=== PATIENT | female | born 1950 | race Caucasian/White ===

== ENCOUNTER → 2023-10-06 | Outpatient (REF) | payer OTHER, SELFPAY | LOC: DHSLP | PROVIDERS: ATTENDING PHYSICIAN Internal Medicine; FAMILY PHYSICIAN Emergency Medicine | DX: G47.30 Sleep apnea, unspecified (principal); R06.83 Snoring | CPT/HCPCS: 95800 ==

== ENCOUNTER → 2023-10-18 15:45 | Outpatient (REF) | payer OTHER, SELFPAY | LOC: DHCBS HW 15:45 | PROVIDERS: ATTENDING PHYSICIAN Internal Medicine Cardiovascular Disease; FAMILY PHYSICIAN Emergency Medicine | DX: R06.02 Shortness of breath (principal) | CPT/HCPCS: 93306 ==

== ENCOUNTER 2023-11-26 11:17 | Inpatient (IN) | payer OTHER, SELFPAY ==
[2023-11-25 17:26] VITALS: BP 139/78
[2023-11-25 17:49] LABS: % Basophils 0.2 % (0-2); % Immature Granulocytes 0.7 % (0-0.5); % Lymphocytes 4.4 % (20.5-51.1); % Monocytes 4.9 % (1.7-9.3); % Neutrophils 89.8 % (42.2-75.2); Absolute Immature Granulocytes 0.1 10^3/uL (0-0.05); Absolute Lymphocytes 0.5 10^3/uL (1.2-3.4); Absolute Monocytes 0.6 10^3/uL (0.1-0.6); Absolute Neutrophils 10.9 10^3/uL (1.4-6.5); Hematocrit 36.2 % (37.0-47.0); Hemoglobin 12.1 g/dL (12.0-16.0); Mean Corp Hgb Conc. 33.4 g/dL (33.0-37.0); Mean Corpuscular Hgb 27.6 pg (27.0-31.0); Mean Corpuscular Volume 82.5 fL (81.0-99.0); Nucleated Red Blood Cells % 0 %; Platelet Count 163 10^3/uL (130-400); Red Blood Cell Count 4.39 10^6/uL (4.20-5.40); Red Cell Dist. Width 13.2 % (11.5-14.5); White Blood Cell Count 12.1 10^3/uL (4.8-10.8)
[2023-11-25 18:00] VITALS: BP 146/78
[2023-11-25 18:01] LABS: ALT (SGPT) 17 U/L (0-35); AST (SGOT) 25 U/L (14-36); Albumin 4.2 g/dl (3.5-5.0); Alkaline Phosphatase 72 U/L (38-126); Blood Urea Nitrogen 17 mg/dl (7-17); Calcium 9.9 mg/dl (8.4-10.2); Carbon Dioxide 21 mmol/L (22-30); Chloride 99 mmol/L (98-107); Glucose 127 mg/dl (70-99); Sodium 129 mmol/L (135-145); Total Bilirubin 1.6 mg/dl (0.2-1.3); Total Protein 7.1 g/dl (6.3-8.2); eGFR > 60.00
--- NOTE | 2023-11-25 18:14 | ED.GENMED ---
History of Present Illness
General
Chief Complaint: Skin Problem
Source: patient
Exam Limitations: none
Time Seen by Provider: 11/25/23 17:54
Travel History
Have you had any contact with someone who has COVID-19?: No
Do you have any symptoms of coronavirus? Fever > 100 degrees, chills, cough, shortness of breath, sore throat, loss of taste or smell, muscle aches, or headache?: No
History of Present Illness
History of Present Illness:
This is a 73 year old female that comes in with c/o rash on the right leg and feels like she has the flu. States that she started last night with vomiting and feeling like she had the flu. States that she had a temp was 100.2 and se normally runs on
the low side. States that she also has a rash on her leg which she states that she just noticed this morning. States that she also had chills last night, ,nausea and the vomiting. Denies any chest pain, SOB, abd pain, diarrhea, headache, dizziness,
urinary burning.
Past History
Past History
ED Past Medical History: Cancer, Hypercholesterolemia and Other (Non-Hodgkin's Lymphoma, MVP, Hiatal hernia)
ED Past Surgical History: Gynecological (Oophoerectomy) and Other (Lymph node biopsy, Right eye surgery, )
Social History
Tobacco: Non-smoker
Alcohol: Occasional
Drug: None
Personal:
Living: with family
Employment: Retired
Family History
Family History: Other (Noncontributory)
Review of Systems
Review of Systems
All Other Systems: ROS reviewed and negative except as documented in HPI and ROS
Constitutional: Reports fever and chills
EENT: Reports no symptoms
Respiratory: Reports no symptoms; Denies cough or trouble breathing
Cardiac: Reports no symptoms; Denies chest pain
ABD/GI: Reports nausea and vomiting; Denies abdominal pain or diarrhea
: Reports no symptoms
Musculoskeletal: Reports no symptoms
Skin: Reports rash (Or the right leg)
Neurological: Reports no symptoms; Denies dizzy or headache
Psychiatric: Reports no symptoms
Phy Exam
General Physical Exam
General Presentation: no apparent distress
General age: appears stated age
General Skin: warm and dry
General Habitus: elderly
General Mental: alert
ENT Exam
ENT Exam: TM's normal, pharynx normal and neck supple
Eye Exam
Eye Exam: EOMI
Cardiovascular Exam
Cardiovascular Exam: regular rate/rhythm and normal peripheral pulses
Pulmonary Exam
Pulmonary Exam: lungs clear, no respiratory distress, no rales, chest non tender, no crackles, no rhonchi, no wheezing and no cough
Gastrointestinal Exam
Gastrointestinal Exam: non tender, soft, no organomegaly, no pulsatile mass, non distended and other (Hypoactive bowel sounds)
Musculoskeletal Exam
Musculoskeletal Exam: full ROM and edema (Of the right foot and lower leg. )
Skin Exam
Skin Exam: normal color, warm/dry, no petechia and erythema (of the right foot lower leg medial aspect of the upper thigh)
Psychiatric Exam
Psychiatric Exam: normal mood/affect
Course
Orders/Labs/Results
Orders:
Orders
11/25/23 17:38
Complete Blood Count/With Diff Urgent
Comprehensive Metabolic Panel Urgent
Blood Culture Q30M
ESTRADA Source: Blood/Venous
Specimen Description:
Comment: FROM 2 SEPARATE SITES
Blood Culture Q30M
ESTRADA Source: Blood/Venous
Specimen Description:
Comment: FROM 2 SEPARATE SITES
11/25/23 18:13
US Periph Venous LOWER Ext RT Urgent
Comment:
Reason For Exam: Swelling, redness
11/25/23 18:14
0.9% Sodium Chloride 500 ml [Nss] 500 ml IV BOLUS
Ondansetron Injectable [Zofran] 4 mg IV NOW STA
11/25/23 18:18
Vancomycin 1 Gram/200 ml [Vancocin] 1 gram in 200 ml IV NOW
11/25/23 18:19
Pantoprazole [Protonix IV] 40 mg IV NOW STA
11/25/23 18:28
COVID-19 Antigen Urgent
Source: Nasal Swab
Lactic Acid Q4H
Comment: CANCEL 2nd LACTIC ACID IF 1st LACTIC ACID IS LESS THAN 2
Influenza A+B Rapid Molecular Urgent
ESTRADA Source: Nasal Swab
Specimen Description:
11/25/23 22:15
Lactic Acid Q4H
Comment: CANCEL 2nd LACTIC ACID IF 1st LACTIC ACID IS LESS THAN 2
Abnormal Lab Results
11/25/23
17:38
WBC 12.1 H 10^3/uL
(4.8-10.8)
Hct 36.2 L %
(37.0-47.0)
Abs Immat Gran (auto) 0.1 H 10^3/uL
(0-0.05)
Absolute Neuts (auto) 10.9 H 10^3/uL
(1.4-6.5)
Absolute Lymphs (auto) 0.5 L 10^3/uL
(1.2-3.4)
Immature Gran % 0.7 H %
(0-0.5)
Neutrophils % 89.8 H %
(42.2-75.2)
Lymphocytes % 4.4 L %
(20.5-51.1)
Sodium 129 L mmol/L
(135-145)
Carbon Dioxide 21 L mmol/L
(22-30)
Glucose 127 H mg/dl
(70-99)
Total Bilirubin 1.6 H mg/dl
(0.2-1.3)
11/25/23 17:38
11/25/23 17:38
Leukocytosis, Hyponatremia, Hyperglycemia, Total yessy slightly elevated. COVID and Influenza noted. Lactic acid normal at 1.2
Vital Signs
Initial and Last Documented VS:
Initial Vital Signs
Temp Pulse Resp BP Pulse Ox
98.2 F 84 16 139/78 100
11/25/23 17:26 11/25/23 17:26 11/25/23 17:26 11/25/23 17:26 11/25/23 17:26
Last Documented Vital Signs
Temp Pulse Resp BP Pulse Ox
98.2 F 84 16 139/78 99
11/25/23 17:26 11/25/23 17:26 11/25/23 17:26 11/25/23 17:11/25/23 17:55
MDM/Problems Addressed
Differential Diagnosis Includes:
Cellulitis, DVT,
MDM/Problems Addressed:
This is a 73 year old female that comes in with c/o feeling like she has the flu and she has redness of the right leg. States that she started yesterday feeling like she had the flu with a fever and vomiting. States that her whole body just hurts.
States that she also noticed that she has a rash of the right leg today.
Will get labs and US the right leg due to swelling. Explained to patient that she will be admitted as this looks to be a Cellulitis. Will start antibiotics.
Back into see patient. Explained that the US is negative for DVT. Will admit patient. Hospitalist notified.
Chronic conditions affecting care:
NA
Acute Exacerbation and/or Progression of Chronic Illness:
NA
*Radiology
Radiology exam reviewed: radiology read reviewed (US-No evidence of DVT of the right lower extremity)
*Pulse Oximetry
Patient hypoxic: no
*EKG
Interpreted by ED Provider?: NA
Rate: EKG- N/A
*Chair Caner Interpretation
Rate: normal
Heart Rate: 87
Rhythm: sinus
*Critical Care Note
Total Time (30-74mins, 75-104mins- exclusive of procedures): Not Applicable
ED Attending Note
-
Portions of this chart may have been created with voice recognition software.� Occasional wrong word or��sound alike� substitutions may have occurred due to the inherent limitations of voice recognition software.
Discharge Plan
Departure
Patient Disposition: Admit
Date of Disposition: 11/25/23
Time of Disposition: 20:04
Admit to: Med/Surg
Presentation/result/management discussed w/ accepting MD/DO: Hospitalist
Patient with high blood pressure during this ER visit?: Yes
Condition: Good
Covid-19: Negative COVID-19
Discharge Problem:
Cellulitis of leg, right
Prescriptions:
No Action
multivitamin 1 EACH tablet
1 ea PO DAILY
ascorbic acid (vitamin C) [Vitamin C] 500 MG tablet
1,000 mg PO DAILY
cholecalciferol (vitamin D3) [Vitamin D3] 400 UNITS tablet
400 units PO DAILY
pantoprazole 40 MG tablet,delayed release (DR/EC)
40 mg PO NOON
dextran 70-hypromellose [Artificial Tears (PF)] 1 EACH dropperette
1 drp BOTH EYES DAILY
melatonin 5 MG tablet
5 mg PO HS PRN (Reason: for sleep)
turmeric root extract 500 MG capsule
500 mg PO QPM
Referrals:
UNKNOWN - PT DOES,NOT KNOW [Family Provider] -
Interventions
Interventions:
*Risk Screen - Suicide Last Done: 11/25/23 17:55
*General Assessment Last Done: 11/25/23 17:55
*Neglect/Abuse Screening Last Done: 11/25/23 17:55
ED- Fall Risk Assessment Last Done: 11/25/23 17:55
ED-Skin Assessment Last Done: 11/25/23 17:55
Discharge Date and Time
Print Language: BELARUSIAN
[2023-11-25] MEDS: PROTONIX IV 40 MG IV (18:29)
[2023-11-25] MEDS: ZOFRAN 4 MG IV ×2 (18:29→20:04)
[2023-11-25] MEDS: NSS 500 IV (18:30)
[2023-11-25] MEDS: VANCOCIN 200 IV (18:30)
[2023-11-25 18:59] LABS: Lactic Acid 1.2 mmol/L (0.7-2.0)
[2023-11-25 19:00] VITALS: BP 148/70
[2023-11-25 19:19] LABS: COVID-19 Antigen Negative (Negative)
[2023-11-25 20:00] VITALS: BP 138/75
--- NOTE | 2023-11-25 20:27 | HPS.HSE ---
Family Physician
-
Family Physician: Jeremy Avila DO
Chief Complaint
-
Right leg erythema and swelling
History of Present Illness
This is a 73-year-old female with past medical history of 'lower herpes and known chronic right lower extremity lymphedema presented to the emergency department today with approximately 1 day history of right leg swelling and erythema.
Patient reported working in her yard about 2 days ago. She started feeling unwell electrolyte symptoms 1 day afterwards. This morning she looked at her feet and noticed increased swelling and erythema that was rapidly increasing throughout today
so she came to the emergency department. She did not have any fever of 102 degrees at home. She reports that severe nausea but no significant emesis at this time.
Denies any itching. Denies feeling lightheaded or dizzy. Denies any known sick contacts. She has not been hospitalized recently. She denies any recent antibiotic use. She is not on any immune suppressants. She has no history of diabetes.
The ED patient was afebrile hemodynamically stable and in mild distress due to nausea. She had leukocytosis to 12,000 but rest of CBC was unremarkable. She had chemistries notable for a sodium of 129 but otherwise unremarkable. COVID test is
negative. Ultrasound of the right lower extremity is negative for a DVT.
Medical History
Past Medical History
Past Medical History: Reports None
Past Surgical History: Reports None
Social History
Tobacco: Non-smoker
Alcohol: None
Drug: None
Personal:
Living: With Family
Employment: Retired
Family History
Family History: Not pertinent
Allergies / Home Medications
Allergies reflects when Allergies were last updated in [facility].
Home Medications with original date entered in [facility]
Allergy/Medication List:
Allergies
Allergy/AdvReac Type Severity Reaction Status Date / Time
adhesive Allergy electrodes Verified 04/04/20 09:11
- rash
No Known Drug Allergies Allergy - Verified 04/04/20 09:11
Home Medications
valacyclovir 500 mg tablet 500 mg PO DAILY 11/25/23
Review of Systems
-
History Source: Patient
Constitutional: Reports Fever, Fatigue and Chills
EENT: Reports No Symptoms
Respiratory: Reports No Symptoms
Cardiac: Reports No Symptoms
Abdomen/GI: Reports No Symptoms
: Reports No Symptoms
Musculoskeletal: Reports No Symptoms
Skin: Reports Rash
Neurological: Reports No Symptoms
Endocrine: Reports No Symptoms
Hematologic/Lymphatic: Reports No Symptoms
Psych: Reports No Symptoms
Physical Exam
Vital Signs
Vital Signs
Temp Pulse Resp BP Pulse Ox
98.2 F 84 16 139/78 99
11/25/23 17:26 11/25/23 17:26 11/25/23 17:26 11/25/23 17:26 11/25/23 17:55
Physical Exam
General: Well Developed and No Apparent Distress
HEENT: NormoCephalic, Anicteric, Moist mucous membranes, Atraumatic and PERRLA
Respiratory: Clear
Cardiac: S1/S2 and Regular Rhythm
Breast: Deferred by me
GI: Soft, Non Tender, Non Distended and Normal Bowel Sounds
Rectal: Deferred by Provider
Genito-urinary: Deferred by me
Musculoskeletal: No Clubbing, No Cyanosis and Edema, Right Lower Extremity
Skin: Warm, Dry and Rash (Right leg erythema extending from the ankle to above the knees. No lymphangitic extensions. )
Neuro: AO x 3
Hematologic/Lymphatic: No Lymphadenopathy
Psych: Calm
Laboratory Results
-
11/25/23 17:38
11/25/23 17:38
Laboratory Results
Lactic Acid Cancelled 11/25/23 22:15
Total Bilirubin 1.6 mg/dl (0.2-1.3) H 11/25/23 17:38
AST 25 U/L (14-36) 11/25/23 17:38
ALT 17 U/L (0-35) 11/25/23 17:38
Alkaline Phosphatase 72 U/L (38-126) 11/25/23 17:38
Data Reviewed
-
Ultrasound: Report Reviewed by me
Lab Data: Labs Reviewed by me
Old Records: Reviewed
Impression/Plan
-
IMPRESSION:
PLAN:
1. Cellulitis - R lower extremity erythema, edema and warmth c/w cellulitis. Mild pruritus. Possibly secondary to insect bite but no open wounds or ulcers noted. Fever to 102 suggestive of systemic inflammatory response. She is also quite
nauseous and unable to tolerate PO. Negative COVID. No respiratory symptoms. No recent hospitalizations, abx use or immunosuppressant use. No diabetes. Fairly low risk but cannot rule out community acquired mrsa.
- admit to observation
- follow up blood cultures
- will continue IV vancomycin for now.
- check MRSA swab
- transition to oral bactrim or doxycycline when tolerating PO
- pain control, keep legs elevated
2. Hyponatremia - Na 129, down from 138 a year ago. No significant hypovolemia on exam but cannot rule out a mild case. Takes valacyclovir only.
- check tsh, urine osmolality and urine Na
- IV fluids overnight and repeat Na in am.
3. Hyperbilirubin - Mildly elevated total bili with normal LFTs. No abdominal complaints.
- will repeat bili in am, if elevated, can obtain RUQ u/s and f/u as outpatient
DVT PPX with lovenox sq
Full Code
[2023-11-25 21:00] VITALS: BP 152/77
[2023-11-25 22:35] VITALS: BP 155/81
[2023-11-25 22:36] VITALS: BMI 35.8
[2023-11-25] MEDS: NSS 1000 IV (22:37)
[2023-11-25] MEDS: COMPAZINE 5 MG IV (23:17)
[2023-11-26] MEDS: VANCOCIN 200 IV (00:29)
--- NOTE | 2023-11-26 04:33 | PTCARENOTE ---
Received patient from ER, AAOx4. Patient able to ambulate from stretcher to bed, gait unsteady d/t right leg edema. Right leg warm, edematous, red from foot to mid thigh. Patient with n/v, zofran not effective; compazine ordered and given with
good results. Call love in reach, oriented to unit. Plan of care continues.
[2023-11-26 05:22] LABS: Osmolality Urine 196 mOsm/kg (300-900)
[2023-11-26 05:28] LABS: Urine Sodium 8 mmol/L (30-90)
[2023-11-26 07:00] VITALS: BP 149/77
[2023-11-26] MEDS: VALTREX 500 MG PO (08:10)
[2023-11-26] MEDS: PROTONIX 40 MG PO (08:10)
[2023-11-26] MEDS: NSS 1000 IV ×2 (08:12→11:28)
[2023-11-26 08:28] LABS: Hemoglobin 10.4 g/dL (12.0-16.0); Mean Corp Hgb Conc. 33.5 g/dL (33.0-37.0); Mean Corpuscular Hgb 27.3 pg (27.0-31.0); Mean Corpuscular Volume 81.4 fL (81.0-99.0); Mean Platelet Volume 9.3 fL (7.4-10.4); Platelet Count 154 10^3/uL (130-400); Red Blood Cell Count 3.81 10^6/uL (4.20-5.40); Red Cell Dist. Width 13.2 % (11.5-14.5)
[2023-11-26 09:18] LABS: Blood Urea Nitrogen 14 mg/dl (7-17); Carbon Dioxide 24 mmol/L (22-30); Chloride 104 mmol/L (98-107); Estimated Creatinine Clearance 74 ml/min; Glucose 98 mg/dl (70-99); Potassium 4.1 mmol/L (3.5-5.1); Sodium 132 mmol/L (135-145); Total Bilirubin 0.7 mg/dl (0.2-1.3); eGFR > 60.00
[2023-11-26 09:39] LABS: TSH 1.05 uIU/ml (0.47-4.68)
--- NOTE | 2023-11-26 10:53 | W.PN.HOSP.TC ---
Today's Communication/Plan
-
see outlined plan
Assessment / Plan
Assessment / Plan
Assessment:
RLE Cellulitis, unclear etiology
Underlying RLE lymphedema
- MRSA screen negative
- DVT study negative
- switch Vanco to IV Ancef
- follow cultures
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
- pain control
Nausea
- no BM in 3 days, no significant oral intake in past few days
- check obstruction series
- prn Compazine
Hyponatremia
- improving with IVF, low rate
Hyperbilirubinemia
- resolved
HX of Non Hodgkin lymphoma
DVT ppx: Lovenox
Code: Full
Anticipated Discharge: > 48 hours
Subjective/Interval History
-
Date of Service: November 26, 2023
denies any new complaints at present
Objective Data
-
Labs:
Laboratory Results
11/26/23
07:09
WBC 9.0
Hgb 10.4 L
Hct 31.0 L
Plt Count 154
Sodium 132 L
Potassium 4.1
Chloride 104
Carbon Dioxide 24
BUN 14
Creatinine 0.7
Glucose 98
Calcium 9.0
Total Bilirubin 0.7
Vital Signs:
Vital Signs
Temp Pulse Resp BP Pulse Ox
98.8 F 82 16 149/77 99
11/26/23 07:00 11/26/23 07:00 11/26/23 07:00 11/26/23 07:00 11/26/23 07:00
Physical Exam
-
General: No Apparent Distress
HEENT: Normocephalic and Atraumatic
Respiratory: Negative Wheezes or Rales
Cardiac: Regular Rhythm and S1/S2
GI: Soft, Nontender and Nondistended
Genito-urinary: No Costovertebral Tender
Musculoskeletal: Other (RLE edema, warmth erythema from foot to mid thigh, no calf tenderness)
Hematologic / Lymphatic: No Lymphadenopathy
Psych: Calm
Data Reviewed
-
Total Time Spent with Patient (in minutes): 42
Labs: Labs Reviewed by me
[2023-11-26] MEDS: FLUSH (NSS) 1 FLUSH IV (12:12)
[2023-11-26] MEDS: ANCEF 10 IV ×2 (12:12→20:11)
[2023-11-26 13:45] VITALS: BP 130/74; PULSE 81; O2SAT 100
[2023-11-26 15:30] VITALS: BP 153/85
[2023-11-26 15:31] VITALS: BMI 35.8
--- NOTE | 2023-11-26 16:02 | CM ---
Initial assessment completed with pt at bedside.
Pt is a 73yr old female initially admitted on OBS and switched to Inpt. for Cellulitis, nausea, and hyponatremia.
Pt lives with her in a multi level home with 5/6 steps to enter.
Pt is independent at baseline and uses no DME. Pt does have a walker and shower bench from a previous joint replacement.
No hx of VN/SNF
PCP; Jeremy Avila
Pharm; [facility]
PLAN; DC to home with home with no needs identified
[2023-11-26] MEDS: LOVENOX 40 MG SC (17:42)
[2023-11-26] MEDS: COMPAZINE 5 MG IV (17:52)
[2023-11-26 23:00] VITALS: BP 158/90
[2023-11-27] MEDS: ANCEF 10 IV ×3 (04:29→20:32)
[2023-11-27 07:09] VITALS: BP 161/86
[2023-11-27] MEDS: VALTREX 500 MG PO (08:22)
[2023-11-27] MEDS: PROTONIX 40 MG PO (08:22)
[2023-11-27 10:04] LABS: Hematocrit 33.6 % (37.0-47.0); Hemoglobin 11.5 g/dL (12.0-16.0); Mean Corp Hgb Conc. 34.2 g/dL (33.0-37.0); Mean Corpuscular Hgb 27.6 pg (27.0-31.0); Mean Corpuscular Volume 80.6 fL (81.0-99.0); Mean Platelet Volume 9.1 fL (7.4-10.4); Platelet Count 185 10^3/uL (130-400); Red Blood Cell Count 4.17 10^6/uL (4.20-5.40); White Blood Cell Count 6.4 10^3/uL (4.8-10.8)
--- NOTE | 2023-11-27 10:15 | W.PN.HOSP.TC ---
Today's Communication/Plan
-
PT/OT
encourage ambulation
elevate legs with more pillows
continue IV ancef
Assessment / Plan
Assessment / Plan
Assessment:
RLE Cellulitis, unclear etiology
Underlying RLE lymphedema
- MRSA screen negative
- DVT study negative
- continue IV Ancef, day 2
- follow cultures
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
- pain control
Nausea
- no BM in 3 days, no significant oral intake in past few days
- obstruction series negative
- prn Compazine
- prn bowel regimen
Hyponatremia
- improving with IVF, low rate
- follow BMP
Hyperbilirubinemia
- resolved
HX of Non Hodgkin lymphoma
DVT ppx: Lovenox
Code: Full
Anticipated Discharge: 24 - 48 hours
Subjective/Interval History
-
Date of Service: November 27, 2023
elevating legs on 2 pillows, feels she needs more
nausea resolved, tolerating diet
Objective Data
-
Labs:
Laboratory Results
11/27/23
09:49
WBC Pending
Hgb Pending
Hct Pending
Plt Count Pending
Sodium Pending
Potassium Pending
Chloride Pending
Carbon Dioxide Pending
BUN Pending
Creatinine Pending
Glucose Pending
Calcium Pending
Vital Signs:
Vital Signs
Temp Pulse Resp BP Pulse Ox
98.7 F 78 16 161/86 99
11/27/23 07:09 11/27/23 07:09 11/27/23 07:09 11/27/23 07:09 11/27/23 07:09
I&O
11/26/23 11/27/23 11/28/23
06:59 06:59 06:59
Intake Total 1999
Balance 1999
Physical Exam
-
General: No Apparent Distress
HEENT: Normocephalic and Atraumatic
Respiratory: Negative Wheezes or Rales
Cardiac: Regular Rhythm and S1/S2
GI: Soft
Musculoskeletal: Other (RLE edema, warmth erythema from foot to mid thigh, no calf tenderness - improved from exam 11/25)
Neuro: AO x 3
Hematologic / Lymphatic: No Lymphadenopathy
Psych: Calm
Data Reviewed
-
Total Time Spent with Patient (in minutes): 42
Labs: Labs Reviewed by me
[2023-11-27 11:35] LABS: Blood Urea Nitrogen 10 mg/dl (7-17); Calcium 9.6 mg/dl (8.4-10.2); Carbon Dioxide 27 mmol/L (22-30); Chloride 103 mmol/L (98-107); Estimated Creatinine Clearance 86 ml/min; Glucose 135 mg/dl (70-99); Potassium 3.6 mmol/L (3.5-5.1); Sodium 134 mmol/L (135-145); eGFR > 60.00
[2023-11-27] MEDS: FLUSH (NSS) 1 FLUSH IV (12:52)
--- NOTE | 2023-11-27 12:56 | PTOTSP ---
Pt is indep in ADLs and functional mobility/transfers. No skilled OT services warrants. Reconsult if pt has a decline in functional status.
[2023-11-27 15:58] VITALS: BP 107/71
[2023-11-27] MEDS: LOVENOX 40 MG SC (17:11)
[2023-11-27 23:57] VITALS: BP 121/69
[2023-11-28] MEDS: ANCEF 10 IV ×2 (04:15→12:14)
[2023-11-28 07:29] LABS: Hematocrit 30.4 % (37.0-47.0); Hemoglobin 10.1 g/dL (12.0-16.0); Mean Corp Hgb Conc. 33.2 g/dL (33.0-37.0); Mean Corpuscular Hgb 27.4 pg (27.0-31.0); Mean Corpuscular Volume 82.6 fL (81.0-99.0); Mean Platelet Volume 9.1 fL (7.4-10.4); Platelet Count 184 10^3/uL (130-400); Red Blood Cell Count 3.68 10^6/uL (4.20-5.40); Red Cell Dist. Width 12.7 % (11.5-14.5); White Blood Cell Count 6.2 10^3/uL (4.8-10.8)
[2023-11-28 07:55] VITALS: BP 142/84
[2023-11-28 08:07] LABS: Blood Urea Nitrogen 14 mg/dl (7-17); Calcium 9.1 mg/dl (8.4-10.2); Carbon Dioxide 25 mmol/L (22-30); Chloride 103 mmol/L (98-107); Estimated Creatinine Clearance 74 ml/min; Glucose 91 mg/dl (70-99); Potassium 3.6 mmol/L (3.5-5.1); Sodium 136 mmol/L (135-145); eGFR > 60.00
[2023-11-28] MEDS: VALTREX 500 MG PO (10:17)
[2023-11-28] MEDS: PROTONIX 40 MG PO (10:17)
[2023-11-28 15:55] VITALS: BP 127/71
--- NOTE | 2023-11-28 17:17 | W.PN.HOSP.TC ---
Today's Communication/Plan
-
d/c home
Assessment / Plan
Assessment / Plan
RLE Cellulitis, unclear etiology
Underlying RLE lymphedema
- MRSA screen negative
- DVT study negative
- follow cultures
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
- pain control
-Patient instructed to follow-up with lymphedema clinic. Have seen in past
-Discharging on oral Keflex course
Right upper thigh soft tissue lesion
-Ultrasound showing possible cystic area
-f/u with PCP and may need biopsy if enlarging in size
Nausea -resolved
- no BM in 3 days, no significant oral intake in past few days
- obstruction series negative
- prn Compazine
- prn bowel regimen
Hyponatremia
- improving with IVF, low rate
- follow BMP
Hyperbilirubinemia
- resolved
HX of Non Hodgkin lymphoma
DVT ppx: Lovenox
Code: Full
More than 30 minutes spent in discharge including
Final examination of the patient
Summarizing hospital stay
Instructions for continuing care to all relevant caregivers
Preparation of discharge records, prescriptions, and referral forms
Total time spent (in minutes): 38 mins
Anticipated Discharge: Today
Subjective/Interval History
-
Date of Service: November 28, 2023
No issues overnight
Afebrile
Objective Data
-
Labs:
Laboratory Results
11/28/23
05:59
WBC 6.2
Hgb 10.1 L
Hct 30.4 L
Plt Count 184
Sodium 136
Potassium 3.6
Chloride 103
Carbon Dioxide 25
BUN 14
Creatinine 0.7
Glucose 91
Calcium 9.1
Vital Signs:
Vital Signs
Temp Pulse Resp BP Pulse Ox
98.9 F 81 20 127/71 100
11/28/23 15:55 11/28/23 15:55 11/28/23 15:55 11/28/23 15:55 11/28/23 15:55
I&O
11/27/23 11/28/23 11/29/23
06:59 06:59 06:59
Intake Total 1999 960 / 960
Balance 1999 960 / 960
Review of Systems
-
Respiratory: Reports No Symptoms
Cardiac: Reports No Symptoms
Abdomen/GI: Reports No Symptoms
Physical Exam
-
General: Obese
HEENT: Negative Oxygen
Respiratory: Clear to Auscultation
Cardiac: Regular Rhythm and S1/S2; Negative Murmur or Rub
GI: Soft, Nontender, Nondistended and Normal Bowel Sounds
Musculoskeletal: Edema, Right Lower Extrem (erythema of skin right knee to ankle)
Neuro: Awake, Alert, Oriented, No Motor Deficits and Nonfocal/Grossly Intact
Psych: Calm
[2023-11-29 01:33] LABS: 24 Hour Urine Total Volume Random mL; Chloride, Urine <20 mmol/L; Creatinine, Urine per Volume 33 mg/dL; Urine Collection Length Random hr
--- NOTE | 2023-11-29 17:48 | W.DCSUMMARY ---
Discharge Summary
Discharge Data
Date of Admission: 11/26/23
Date of Discharge: 11/28/23
-
Pending Results: No
Hospital Course
Discharging Physician : Dr Clovis Gomez
Disposition : To home
Primary care physician : Dr Jeremy Avila
Principal Discharge diagnosis :
Right leg cellulitis
Right upper thigh soft tissue mass, possible lipoma
Hyponatremia
Chronic Discharge diagnosis :
History of lymphedema
History of non hodgkin lymphoma
Hospital Course :
Patient is a 73-year-old female with above-mentioned past medical history came to ER for having new onset of right lower lobe swelling and erythema. Patient with history of lymphedema although does not have significant symptoms. Patient was
diagnosed to have right lower extremity cellulitis. Lower extremity venous Doppler was checked and was negative for clot. Patient was started on empiric antibiotics. Blood elevation/strapping was done with patient having improvement in symptoms
in 48 hours. Discharge patient was provided 7 days of Keflex course.
Of note patient had right upper thigh subcutaneous soft tissue mass which was checked with ultrasound and showed a cystic lesion of unclear significance. Patient instructed to follow-up with primary care physician and to be followed up clinically
with further testing/biopsy if clinically warranted. Suspecting lipoma.
Important imaging findings :
None
Procedure findings :
None
Discharge Plan
-
Patient Disposition: Home (Routine Discharge)
Discharge Diagnosis/Procedures: Right leg cellulitis
Condition: Fair
Diet: Low Sodium
Activity: As tolerated
Driving Restrictions: As prior to admission
Bathing Restrictions: OK to Shower
Referrals:
Jeremy Avila, [Family Provider] - in one week
Prescriptions:
New
cephalexin 500 mg capsule
500 mg PO QID 7 Days Qty: 28 0RF
Continued
valacyclovir 500 mg tablet
500 mg PO DAILY
Discharge Orders:
Discharge Patient (As Directed); Ordered 11/28/23
Ordered By: Clovis Gomez
Discharge Date and Time
Discharge Date/Time: 11/28/23 18:15
Print Language: DIVEHI
== END 2023-11-28 18:15 | disposition home or self-care (01) | DRG 603 ==
LOC: 4 EAST ACU 11:17
PROVIDERS: Clinical Nurse Specialist Family Health; Internal Medicine; ADMITTING PHYSICIAN Internal Medicine; ATTENDING PHYSICIAN Hospitalist; EMERGENCY PHYSICIAN Emergency Medicine; FAMILY PHYSICIAN Family Medicine
DX: L03.115 Cellulitis of right lower limb (principal); E87.1 Hypo-osmolality and hyponatremia; I89.0 Lymphedema, not elsewhere classified; E78.00 Pure hypercholesterolemia, unspecified; K44.9 Diaphragmatic hernia without obstruction or gangrene; E80.6 Other disorders of bilirubin metabolism; D72.829 Elevated white blood cell count, unspecified; Z85.72 Personal history of non-Hodgkin lymphomas
CPT/HCPCS: 74022; 76882; 80048; 80053; 82247; 82436; 83605; 83935; 84300; 84443; 85025; 85027; 87040; 87502; 87641; 87811; 93971; 96365; 96375; 96376; 97161; 99284

== ENCOUNTER → 2024-10-31 13:38 | Outpatient (REF) | payer OTHER, SELFPAY | LOC: HWRAD 13:38 | PROVIDERS: ATTENDING PHYSICIAN Emergency Medicine | DX: M81.0 Age-related osteoporosis without current pathological fracture (principal) | CPT/HCPCS: 77080 ==